=== PATIENT | male | born 1990 | race Caucasian/White ===

== ENCOUNTER 2019-01-31 10:46 | Emergency (ER) | payer OTHER, SELFPAY ==
[2019-01-31] MEDS ORDERED: MECLIZINE HCL 12.5 MG TAB ONE (11:36)
[2019-01-31] MEDS ORDERED: NA CHLORIDE 0.9% 1,000 ML ONE (11:36)
[2019-01-31] MEDS ORDERED: PROMETHAZINE 25 MG/ML VIAL ONE (11:36)
[2019-01-31 11:39] LABS: Absolute Lymphocytes (CBC) 1.6 K/uL (0.7-4.9); Basophils % 0.6 % (0-1.3); Hematocrit 42.8 % (39.6-49.0); MPV 9.6 fL (7.6-11.3); RBC Red Blood Cell Count 4.85 M/uL (4.33-5.43)
--- NOTE | 2019-01-31 11:40 | RAD REPORT ---
EXAM DESCRIPTION: CT - Head Brain Wo Cont - 01/31/2019 11:30 am CLINICAL HISTORY: DIZZINESS Headache, drowsiness COMPARISON: No comparisons TECHNIQUE: All CT scans are performed using dose optimization technique as appropriate and may inclu de automated exposure control or mA/KV adjustment according to patient size. FINDINGS: No intracranial hemorrhage, hydrocephalus or extra-axial fluid collection.No areas of brai n edema or evidence of midline shift. The paranasal sinuses and mastoids are clear. The calvarium is intact. IMPRESSION: No acute intracranial abnormality.
[2019-01-31 11:54] LABS: Albumin 4.3 g/dL (3.4-5.0); Bilirubin Direct 0.1 mg/dL (0-0.2); Bilirubin Total 0.4 mg/dL (0.2-1.0); Protein, Total 7.4 g/dL (6.4-8.2)
--- NOTE | 2019-01-31 13:40 | ER ---
Nurse's Notes [facility] Name: Mat Abad Age: 28 yrs Sex: Male : 1990 Arrival Date: 01/31/2019 Time: 10:48 Bed 13 Private MD: Diagnosis: Dizziness and giddiness;Nausea and vomiting Presentation: 01/31 10:53 Presenting complaint: EMS states: ACUTE ONSET WEAKNESS AND NAUSEA/VOMITING. Transition bp of care: patient was not received from another setting of care. Onset of symptoms is unknown. Risk Assessment: Do you want to hurt yourself or someone else? Patient reports no desire to harm self or others. Initial Sepsis Screen: Does the patient meet any 2 criteria? No. Patient's initial sepsis screen is negative. Does the patient have a suspected source of infection? No. Patient's initial sepsis screen is negative. Care prior to arrival: Medication(s) given: zofran 4 mg, IV initiated. 20 GA, in the right antecubital area, Glucose check: 96. 10:53 Method Of Arrival: EMS: [facility] EMS bp 10:53 Acuity: REJI 3 bp Triage Assessment: 10:55 General: Appears in no apparent distress. uncomfortable, obese, Behavior is bp cooperative, appropriate for age, anxious. Pain: Denies pain. EENT: No deficits noted. Neuro: No deficits noted. Cardiovascular: Rhythm is sinus rhythm. Respiratory: No deficits noted. GI: Reports nausea, vomiting. : No signs and/or symptoms were reported regarding the genitourinary system. Derm: No deficits noted. Musculoskeletal: No deficits noted. Historical: - Allergies: 10:55 No Known Allergies; bp - Home Meds: 10:55 Unable to obtain [Active]; bp - PMHx: 10:55 Multiple Sclerosis; bp - Immunization history:: Adult Immunizations up to date. - Social history:: Smoking status: Patient/guardian denies using tobacco. - Ebola Screening: : No symptoms or risks identified at this time. Screenin:57 Abuse screen: Denies threats or abuse. Denies injuries from another. Nutritional bp screening: No deficits noted. Tuberculosis screening: No symptoms or risk factors identified. Fall Risk None identified. Assessment: 10:56 General: SEE TRIAGE NOTE. GI: Pt is actively vomiting bile. bp 11:30 Reassessment: PT RETURNED FROM CT. bp 13:12 Reassessment: ALL CURRENT ORDERS COMPLETED, VS STABLE. bp 13:55 Reassessment: PT D/C HOME AMBULATORY WITH FAMILY, DX WITH NAUSEA AND VOMITING. bp Vital Signs: 10:55 BP 118 / 80; Pulse 70; Resp 16; Temp 98.3; Pulse Ox 96% ; Weight 138.35 kg; Height 6 bp ft. 3 in. (190.50 cm); 11:30 BP 118 / 81; Pulse 54; Resp 16; Pulse Ox 96% ; bp 13:12 BP 106 / 76; Pulse 59; Resp 16; Pulse Ox 96% ; bp 10:55 Body Mass Index 38.12 (138.35 kg, 190.50 cm) bp ED Course: 10:48 Patient arrived in ED. ms 10:52 Mat Flores, CRISTAL is Primary Nurse. bp 10:54 Triage completed. bp 10:55 Arm band placed on. bp 10:56 Maintain EMS IV. Dressing intact. Good blood return noted. Site clean \T\ dry. Gauge \T\ ms site: 20g Right AC. IV is intact, with fluids infusing freely, with good blood return, Flushed right antecubital. 10:57 [facility] Quiro[facility]C [facility]. la1 10:57 Oswaldo Kasper MD is Attending Physician. la1 10:58 Patient has correct armband on for positive identification. Bed in low position. Call bp light in reach. Side rails up X2. Adult w/ patient. 11:30 CT Head Brain wo Cont In Process Unspecified. EDMS 13:55 No provider procedures requiring assistance completed. IV discontinued, intact, bp bleeding controlled, No redness/swelling at site. Pressure dressing applied. Administered Medications: 11:35 Drug: NS 0.9% 1000 ml Route: IV; Rate: 1000 ml; Site: right antecubital; bp 13:22 Follow up: IV Status: Completed infusion; IV Intake: 1000ml bp 11:35 Drug: Phenergan 12.5 mg Route: IVP; Site: right antecubital; bp 13:22 Follow up: Response: Nausea is decreased bp 11:35 Drug: Meclizine 25 mg Route: PO; bp 13:22 Follow up: Response: Marked relief of symptoms bp Intake: 13:22 IV: 1000ml; Total: 1000ml. bp Outcome: 13:39 Discharge ordered by MD. oscar 13:55 Discharged to home ambulatory, with family. bp 13:55 Condition: stable 13:55 Discharge instructions given to patient, Instructed on discharge instructions, follow up and referral plans. medication usage, Demonstrated understanding of instructions, follow-up care, medications, Prescriptions given X 1. 13:56 Patient left the ED. bp Signatures: Dispatcher [employer] EDMS Geetha Erwin ms, Lee, PLASTIC BOAT PATCHER-C PLASTIC BOAT PATCHER-[facility] Mat Flores, RN RN bp
--- NOTE | 2019-01-31 13:41 | EDPHYS ---
Physician Documentation [facility] Name: Mat Abad Age: 28 yrs Sex: Male : 1990 Arrival Date: 01/31/2019 Time: 10:48 Bed 13 Private MD: ED Physician Oswaldo Kasper HPI: 01/31 12:08 This 28 yrs old Male presents to ER via EMS with complaints of General la1 Weakness, Nausea. 12:08 Onset: The symptoms/episode began/occurred this morning. Associated signs and symptoms: la1 Pertinent positives: headache, vomiting, Pertinent negatives: abdominal pain, chest pain, congestion, constipation. Associated signs and symptoms: Pertinent positives: vertigo. Modifying factors: The patient symptoms are alleviated by nothing, the patient symptoms are aggravated by nothing. The patient has not experienced similar symptoms in the past. The patient has not recently seen a physician. Pt was at work and began feeling as if the room was spinning, had three episodes of vomiting and feels ill. Historical: - Allergies: 10:55 No Known Allergies; bp - Home Meds: 10:55 Unable to obtain [Active]; bp - PMHx: 10:55 Multiple Sclerosis; bp - Immunization history:: Adult Immunizations up to date. - Social history:: Smoking status: Patient/guardian denies using tobacco. - Ebola Screening: : No symptoms or risks identified at this time. ROS: 12:09 Constitutional: Negative for fever, chills, and weight loss, Eyes: Negative for injury, la1 pain, redness, and discharge, ENT: Negative for injury, pain, and discharge, Neck: Negative for injury, pain, and swelling, Cardiovascular: Negative for chest pain, palpitations, and edema, Respiratory: Negative for shortness of breath, cough, wheezing, and pleuritic chest pain. 12:09 Back: Negative for injury and pain, MS/Extremity: Negative for injury and deformity, Skin: Negative for injury, rash, and discoloration. 12:09 Abdomen/GI: Positive for nausea and vomiting, Negative for abdominal pain. 12:09 Neuro: Positive for dizziness, Negative for altered mental status, headache, hearing loss, loss of consciousness, numbness, seizure activity, speech changes, syncope, near syncope, tingling, tinnitus. Exam: 12:10 Constitutional: This is a well developed, well nourished patient who is awake, alert, la1 and in no acute distress. Head/Face: Normocephalic, atraumatic. Eyes: Pupils equal round and reactive to light, extra-ocular motions intact. Lids and lashes normal. Conjunctiva and sclera are non-icteric and not injected. Cornea within normal limits. Periorbital areas with no swelling, redness, or edema. ENT: Nares patent. No nasal discharge, no septal abnormalities noted. Tympanic membranes are normal and external auditory canals are clear. Oropharynx with no redness, swelling, or masses, exudates, or evidence of obstruction, uvula midline. Mucous membranes moist. Neck: . Supple, full range of motion without nuchal rigidity, or vertebral point tenderness. No Meningismus. Chest/axilla: Normal chest wall appearance and motion. Nontender with no deformity. No lesions are appreciated. Cardiovascular: Regular rate and rhythm with a normal S1 and S2. No gallops, murmurs, or rubs. Normal PMI, no JVD. No pulse deficits. Respiratory: Lungs have equal breath sounds bilaterally, clear to auscultation No rales, rhonchi or wheezes noted. No increased work of breathing, no retractions or nasal flaring. Abdomen/GI: Soft, non-tender, with normal bowel sounds. No distension or tympany. No guarding or rebound. No evidence of tenderness throughout. Neuro: Awake and alert, GCS 15, oriented to person, place, time, and situation. Cranial nerves II-XII grossly intact. Motor strength 5/5 in all extremities. Sensory grossly intact. Cerebellar exam normal. Normal gait. Vital Signs: 10:55 BP 118 / 80; Pulse 70; Resp 16; Temp 98.3; Pulse Ox 96% ; Weight 138.35 kg; Height 6 bp ft. 3 in. (190.50 cm); 11:30 BP 118 / 81; Pulse 54; Resp 16; Pulse Ox 96% ; bp 13:12 BP 106 / 76; Pulse 59; Resp 16; Pulse Ox 96% ; bp 10:55 Body Mass Index 38.12 (138.35 kg, 190.50 cm) bp MDM: 10:57 Patient medically screened. la1 13:16 Data reviewed: vital signs, nurses notes, lab test result(s), radiologic studies, and la1 as a result, I will discharge patient. Data interpreted: Pulse oximetry: on room air is 96 %. Interpretation: normal. Counseling: I had a detailed discussion with the patient and/or guardian regarding: the historical points, exam findings, and any diagnostic results supporting the discharge/admit diagnosis, lab results, radiology results. ED course: Pt feeling much better, no longer feels as if room is spinning, tolerating PO. . 01/31 11:17 Order name: Basic Metabolic Panel; Complete Time: 11:57 la1 01/31 11:17 Order name: CBC with Diff; Complete Time: 11:52 la1 01/31 11:17 Order name: Hepatic Function; Complete Time: 11:57 la1 01/31 11:17 Order name: Lipase; Complete Time: 11:57 la1 01/31 11:17 Order name: CT Head Brain wo Cont; Complete Time: 11:52 la1 01/31 12:09 Order name: Flu; Complete Time: 13:10 la1 01/31 11:17 Order name: IV Saline Lock; Complete Time: 11:21 la1 01/31 11:17 Order name: Labs collected and sent; Complete Time: 11:39 la1 01/31 13:15 Order name: PO challenge; Complete Time: 13:21 la1 Administered Medications: 11:35 Drug: NS 0.9% 1000 ml Route: IV; Rate: 1000 ml; Site: right antecubital; bp 13:22 Follow up: IV Status: Completed infusion; IV Intake: 1000ml bp 11:35 Drug: Phenergan 12.5 mg Route: IVP; Site: right antecubital; bp 13:22 Follow up: Response: Nausea is decreased bp 11:35 Drug: Meclizine 25 mg Route: PO; bp 13:22 Follow up: Response: Marked relief of symptoms bp Disposition: 17:40 Co-signature as Attending Physician, Oswaldo Kasper MD. rn Disposition: 01/31/19 13:39 Discharged to Home. Impression: Dizziness and giddiness, Nausea and vomiting. - Condition is Stable. - Discharge Instructions: Benign Positional Vertigo, Dizziness, Nausea and Vomiting, Adult, Rehydration, Adult. - Prescriptions for Zofran 4 mg Oral Tablet - take 1 tablet by ORAL route every 12 hours As needed; 20 tablet. - Work release form, Medication Reconciliation Form, Thank You Letter form. - Follow up: Private Physician; When: 2 - 3 days; Reason: Recheck today's complaints, Re-evaluation by your physician. Follow up: Emergency Department; When: As needed; Reason: Worsening of condition. Signatures: Dispatcher [employer] EDOswaldo Cardona MD MD rn Addi Quiroga, TOWN JUSTICE-C [employer]-[facility] Mat Flores RN RN bp Corrections: (The following items were deleted from the chart) 13:56 13:39 01/31/2019 13:39 Discharged to Home. Impression: Dizziness and giddiness; Nausea bp and vomiting. Condition is Stable. Forms are Medication Reconciliation Form, Thank You Letter, Antibiotic Education, Prescription Opioid Use. Follow up: Private Physician; When: 2 - 3 days; Reason: Recheck today's complaints, Re-evaluation by your physician. Follow up: Emergency Department; When: As needed; Reason: Worsening of condition. la1
[2019-01-31 14:21] VITALS: TEMP 98.3; O2SAT 96
[2019-01-31 14:24] VITALS: BP 106/76
== END 2019-01-31 13:56 | disposition home or self-care (01) ==
LOC: ER 10:46
DX: R11.2 Nausea with vomiting, unspecified (principal); G35 Multiple sclerosis
CPT/HCPCS: 36415; 70450; 80048; 80076; 83690; 85025; 87804; 96361; 96374; 99284; J2550; J7030; J8597